=== PATIENT | male | born 1950 | race Caucasian/White ===

== ENCOUNTER → 2016-06-12 | Outpatient (CLI) | payer OTHER ==
[~2016-06-12] MED LIST: IOPAMIDOL (ISOVUE-300) 100 ML BTL IV ONE
== END ==
LOC: FIMAGING 10:01
PROVIDERS: ATTEND Internal Medicine Critical Care Medicine
DX: R59.1 Generalized enlarged lymph nodes (principal)
CPT/HCPCS: Q9967

== ENCOUNTER → 2016-07-04 | Outpatient (CLI) | payer OTHER | LOC: FIMAGING 16:31 | PROVIDERS: ATTEND Neurological Surgery | DX: Z09 Encounter for follow-up examination after completed treatment for conditions other than malignant neoplasm (principal); Z98.1 Arthrodesis status ==

== ENCOUNTER → 2016-10-03 | Outpatient (CLI) | payer OTHER, MEDICARE | LOC: BMCIMAGING 08:40 | PROVIDERS: ATTEND Family Medicine | DX: K76.89 Other specified diseases of liver (principal); K76.0 Fatty (change of) liver, not elsewhere classified; R16.0 Hepatomegaly, not elsewhere classified; N28.89 Other specified disorders of kidney and ureter; N20.0 Calculus of kidney ==

== ENCOUNTER → 2016-11-01 | Outpatient (CLI) | payer OTHER, MEDICARE ==
[~2016-11-01] MED LIST changes: -IOPAMIDOL (ISOVUE-300) 100 ML BTL IV ONE; +IOPAMIDOL (ISOVUE-300) 100 ML BTL ONE
== END ==
LOC: FIMAGING 10:16
PROVIDERS: ATTEND Family Medicine
DX: K76.0 Fatty (change of) liver, not elsewhere classified (principal); K76.89 Other specified diseases of liver
CPT/HCPCS: 74160; Q9967

== ENCOUNTER → 2016-12-31 | Outpatient (CLI) | payer OTHER, MEDICARE | LOC: FCPNEURO 23:19 | PROVIDERS: ATTEND Psychiatry & Neurology Sleep Medicine | DX: R09.02 Hypoxemia (principal); G47.61 Periodic limb movement disorder ==

== ENCOUNTER 2017-03-10 08:03 | Inpatient (IN) | payer OTHER, MEDICARE ==
--- NOTE | 2017-03-10 08:16 | CPEKG ---
Heart Rate: 113 RR Interval: 531 P-R Interval: 164 QRSD Interval: 92 QT Interval: 324 QTC Interval: 445 P Lena: 75 QRS Lena: 93 T Wave Lena: 41 EKG Severity - OTHERWISE NORMAL ECG - EKG Impression: SINUS TACHYCARDIA EKG Impression: RIGHT AXIS DEVIATION Electronically Signed By: Deandre Diego 10-Mar-2017 11:27:29
--- NOTE | 2017-03-10 08:38 | EDPHY ---
H & P Time Seen by Provider: 03/10/17 08:37 HPI/ROS: Chief complaint. Shortness of breath HPI. Patient is a 66-year-old male presents emergency department with phlegm and chest for 1 month. 2 weeks ago he was visiting his daughter in [place] and then noticed he was gasping for breath on the plane back. He has been using Mucinex and Symbicort with inadequate relief. He has now been on amoxicillin and prednisone for the past 5 days. He has had a low-grade fever. His dyspnea is much worse with exertion. He lives in [place] and has noted that his pulse oximeter is in the mid 60%. He has had cough and feels fluid buildup in his lungs. He has sharp mid chest discomfort with cough. No unusual leg pain or swelling. Chronic low back pain with continuous opioid dependency. ROS Constitutional. no fever/chills, no weakness Eyes. no problems with vision ENT. no sore throat, no nasal drainage Cardiovascular. Chest pain with cough Respiratory. Exertional dyspnea and cough Abdominal. no abdominal pain, no nausea/vomiting, no diarrhea . no problems urinating MS. no calf pain/swelling, no neck/back pain, no joint pain Skin. no rash Lymph. no swollen glands Neuro. no headache, no dizziness, no difficulty walking or with speech Past Medical/Surgical History: Past medical history is significant for chronic back closed head injury, seizure disorder, asthma Social History: , nonsmoker, no alcohol Smoking Status: Former smoker Physical Exam: General Appearance: Alert well-developed male moderate distress vital signs significant for blood pressure 102/48, heart rate 106, O2 saturation room air 84 % Eyes: Pupils equal and round no pallor or injection. ENT, mucous membranes are dry. Pharynx without injection Respiratory: No retractions but inspiratory expiratory rhonchi Cardiovascular: Regular rate and rhythm. Gastrointestinal: Abdomen is soft and nontender, no masses, bowel sounds normal. Neurological: Awake and alert, sensory and motor exams grossly normal. Skin: Warm and dry, no rashes. Musculoskeletal: Neck is supple nontender. Extremities symmetrical, full range of motion. Psychiatric: Patient is oriented X 3, there is no agitation. Constitutional: Initial Vital Signs Temperature (C) 37 C 03/10/17 08:05 Heart Rate 106 H 03/10/17 08:05 Respiratory Rate 20 03/10/17 08:05 Blood Pressure 102/48 L 03/10/17 08:05 O2 Sat (%) 84 L 03/10/17 08:05 O2 Delivery Mode Nasal Cannula O2 (L/minute) 2 Allergies/Adverse Reactions: erythromycin base Allergy (Intermediate, Verified 03/10/17 08:04) Hives Home Medications: Medication Instructions Recorded Cetirizine [ZyrTEC 10 mg (*)] 10 mg PO DAILY 09/13/15 Cyclobenzaprine [Flexeril 10 MG 20 mg PO HS 09/13/15 (*)] MILNACIPRAN HCL [Savella 50 mg] 100 mg PO HS 09/13/15 Zolpidem Tartrate [Ambien 5MG (*)] 10 mg PO HS PRN 09/13/15 Amphet Asp and D/Amphet [Adderall 30 mg PO DAILY 09/21/15 10 MG (*)] Fluticasone Nasal [Flonase Nasal 2 sprays EACHNARE DAILY 09/21/15 [place]] Aspirin EC [Aspirin EC 81 mg (*)] 81 mg PO DAILY #0 tab 02/13/16 Budesonide/Formoterol 160/4.5 2 puffs IH BID #1 mdi 02/13/16 [Symbicort 160-4.5 Mcg Inh (*)] Albuterol [Proventil Inhaler HFA 1 - 2 puffs IH DAILY PRN 03/10/17 (*)] Azithromycin 500 mg PO DAILY 03/10/17 Pregabalin [Lyrica] 600 - 900 mg PO HS 03/10/17 Topiramate [Topamax] 50 mg PO DAILY PRN 03/10/17 guaiFENesin [Mucinex 600 MG (*)] 600 mg PO Q4-6PRN PRN 03/10/17 morphINE IR [morphINE IR 15 mg (*)] 15 mg PO BID PRN 03/10/17 morphINE SR [MS Contin/Oramorph SR 30 mg PO TID 03/10/17 30 mg (*)] predniSONE 40 mg PO DAILY 03/10/17 Medical Decision Making - Diagnostics EKG Interpretation: EKG interpreted by me shows sinus tachycardia with normal interval. There is right axis deviation. QRS is otherwise normal. There is no significant ST elevation or depression. No arrhythmia. The rate is 113 Imaging Results: Imaging Impressions Chest X-Ray 03/10/17 08:25 Impression: Perihilar bronchitis with some suspected subtle groundglass pneumonitis in the inferior right upper lobe Chest x-ray reviewed by me shows what appears to be diffuse infiltrates especially in the right upper lobe CT chest shows no evidence of pulmonary embolus Procedures: IV normal saline. Monitor. Oxygen therapy. Rocephin IV ED Course/Re-evaluation: IV normal saline. Blood cultures, septic workup. On re-evaluation patient is stable. He and I discussed imaging and lab results. We discussed treatment plan the including recommendation for admission. He expresses understanding and agreement I consulted and discussed case with Dr. Sandoval, hospitalist, who agrees to the admission Differential Diagnosis: I considered pneumonia, pneumothorax, acute coronary syndrome - Data Points Laboratory Results: Laboratory Results 03/10/17 08:20 03/10/17 08:20 03/10/17 03/10/17 03/10/17 08:20 08:20 08:20 WBC RBC Hgb Hct MCV MCH MCHC RDW Plt Count MPV Neut % (Auto) Lymph % (Auto) [place] % (Auto) Eos % (Auto) Baso % (Auto) Nucleat RBC Rel Count Absolute Neuts (auto) Absolute Lymphs (auto) Absolute Monos (auto) Absolute Eos (auto) Absolute Basos (auto) Absolute Nucleated RBC Immature Gran % Seg Neutrophils % Band Neutrophils % Lymphocytes % Monocytes % Metamyelocytes % Myelocytes % Immature Gran # Absolute Seg Neuts Absolute Band Neuts Absolute Lymphocytes Absolute Monocytes Absolute Metamyelocyte Absolute Myelocytes Platelet Estimate Smear Review By PT INR APTT D-Dimer Cancelled VBG Lactic Acid Sodium Potassium Chloride Carbon Dioxide Anion Gap BUN Creatinine Estimated GFR Glucose Calcium Total Bilirubin Troponin I 0.022 ng/mL ng/mL (0.000-0.034) NT-Pro-B Natriuret Pep 402 pg/mL H pg/mL (0-125) 03/10/17 03/10/17 03/10/17 08:20 08:20 08:20 WBC 5.10 10^3/uL 10^3/uL (3.80-9.50) RBC 4.91 10^6/uL 10^6/uL (4.40-6.38) Hgb 15.4 g/dL g/dL (13.7-17.5) Hct 43.5 % % (40.0-51.0) MCV 88.6 fL fL (81.5-99.8) MCH 31.4 pg pg (27.9-34.1) MCHC 35.4 g/dL g/dL (32.4-36.7) RDW 12.2 % % (11.5-15.2) Plt Count 138 10^3/uL L 10^3/uL (150-400) MPV 10.2 fL fL (8.7-11.7) Neut % (Auto) 68.9 % % (39.3-74.2) Lymph % (Auto) 16.7 % % (15.0-45.0) Ocean % (Auto) 11.8 % % (4.5-13.0) Eos % (Auto) 0.0 % L % (0.6-7.6) Baso % (Auto) 0.4 % % (0.3-1.7) Nucleat RBC Rel Count 0.0 % % (0.0-0.2) Absolute Neuts (auto) 3.52 10^3/uL 10^3/uL (1.70-6.50) Absolute Lymphs (auto) 0.85 10^3/uL L 10^3/uL (1.00-3.00) Absolute Monos (auto) 0.60 10^3/uL 10^3/uL (0.30-0.80) Absolute Eos (auto) 0.00 10^3/uL L 10^3/uL (0.03-0.40) Absolute Basos (auto) 0.02 10^3/uL 10^3/uL (0.02-0.10) Absolute Nucleated RBC 0.00 10^3/uL 10^3/uL (0-0.01) Immature Gran % 2.2 % H % (0.0-1.1) Seg Neutrophils % 30 % % Band Neutrophils % 28 % % Lymphocytes % 24 % % Monocytes % 10 % % Metamyelocytes % 5 % % Myelocytes % 3 % % Immature Gran # 0.11 10^3/uL H 10^3/uL (0.00-0.10) Absolute Seg Neuts 1.53 10^/uL L 10^/uL (1.70-6.50) Absolute Band Neuts 1.43 10^3/uL H 10^3/uL (0.00-0.70) Absolute Lymphocytes 1.22 10^3/uL 10^3/uL (1.00-3.00) Absolute Monocytes 0.51 10^3/uL 10^3/uL (0.30-0.80) Absolute Metamyelocyte 0.26 10^3/mL H 10^3/mL (0.00-0.00) Absolute Myelocytes 0.15 10^3/mL H 10^3/mL (0.00-0.00) Platelet Estimate ADEQUATE (ADEQ) Smear Review By Pending PT 13.3 SEC SEC (12.0-15.0) INR 0.99 (0.83-1.16) APTT 28.0 SEC SEC (23.0-38.0) D-Dimer 1.39 ug/mLFEU H ug/mLFEU (0.00-0.50) VBG Lactic Acid 1.5 mmol/L mmol/L (0.7-2.1) Sodium Potassium Chloride Carbon Dioxide Anion Gap BUN Creatinine Estimated GFR Glucose Calcium Total Bilirubin Troponin I NT-Pro-B Natriuret Pep 03/10/17 08:20 WBC RBC Hgb Hct MCV MCH MCHC RDW Plt Count MPV Neut % (Auto) Lymph % (Auto) Ocean % (Auto) Eos % (Auto) Baso % (Auto) Nucleat RBC Rel Count Absolute Neuts (auto) Absolute Lymphs (auto) Absolute Monos (auto) Absolute Eos (auto) Absolute Basos (auto) Absolute Nucleated RBC Immature Gran % Seg Neutrophils % Band Neutrophils % Lymphocytes % Monocytes % Metamyelocytes % Myelocytes % Immature Gran # Absolute Seg Neuts Absolute Band Neuts Absolute Lymphocytes Absolute Monocytes Absolute Metamyelocyte Absolute Myelocytes Platelet Estimate Smear Review By PT INR APTT D-Dimer VBG Lactic Acid Sodium 138 mEq/L mEq/L (134-144) Potassium 4.0 mEq/L mEq/L (3.5-5.2) Chloride 101 mEq/L mEq/L (97-110) Carbon Dioxide 24 mEq/l mEq/l (22-31) Anion Gap 13 mEq/L mEq/L (8-16) BUN 21 mg/dL mg/dL (7-23) Creatinine 0.9 mg/dL mg/dL (0.7-1.3) Estimated GFR > 60 Glucose 114 mg/dL H mg/dL (70-100) Calcium 8.3 mg/dL L mg/dL (8.5-10.4) Total Bilirubin 0.8 mg/dL mg/dL (0.1-1.4) Troponin I NT-Pro-B Natriuret Pep Medications Given: Budesonide/Formoterol Fumarate (Symbicort 160-4.5 Mcg Inhaler) 2 puffs IH BID [facility] Stop: 09/06/17 11:59 Last Admin: 03/10/17 12:00 Dose: 2 puffs Cetirizine HCl (Zyrtec) 10 mg PO DAILY [facility] Stop: 09/06/17 08:59 Last Admin: 03/10/17 12:45 Dose: Not Given Fluticasone Propionate (Flonase Nasal [place]) 2 sprays EACHNARE DAILY [facility] Stop: 09/06/17 11:59 Last Admin: 03/10/17 12:46 Dose: 2 spr Guaifenesin (Mucinex) 600 mg PO BID [facility] Stop: 09/06/17 12:14 Last Admin: 03/10/17 12:45 Dose: 600 mg Oseltamivir Phosphate (Tamiflu) 75 mg PO BIDMEAL [facility] Stop: 03/14/17 18:01 Last Admin: 03/10/17 12:45 Dose: 75 mg Discontinued Medications Albuterol/Ipratropium (Duoneb) 3 ml IH EDNOW ONE Stop: 03/10/17 09:04 Last Admin: 03/10/17 09:12 Dose: 3 ml Sodium Chloride (Ns) 1,000 mls @ 0 mls/hr IV ONCE ONE; Wide Open PRN Reason: Protocol Stop: 03/10/17 09:04 Last Admin: 03/10/17 09:13 Dose: 1,000 mls Sodium Chloride (Ns) 1,000 mls @ 0 mls/hr IV ONCE ONE; Wide Open PRN Reason: Protocol Stop: 03/10/17 09:04 Last Admin: 03/10/17 12:32 Dose: Not Given Ceftriaxone Sodium/Dextrose (Rocephin 1 Gm (Premix)) 50 mls @ 100 mls/hr IV EDNOW ONE PRN Reason: Protocol Stop: 03/10/17 09:33 Last Admin: 03/10/17 09:12 Dose: 50 mls Departure - Departure Disposition: [facility] Inpatient Acute Clinical Impression: Hypoxia Pneumonia Qualifiers: Pneumonia type: due to unspecified organism Laterality: bilateral Lung location : upper lobe of lung Qualified Code(s): J18.9 - Pneumonia, unspecified organism Condition: Fair
[2017-03-10 08:50] LABS: % IMMATURE GRANULYOCYTES 2.2 % (0.0-1.1); ABSOLUTE IMMATURE GRANULOCYTES 0.11 10^3/uL (0.00-0.10); ADD DIFF? NO; ADD MORPH? NO; ADD SCAN? YES; FRAGMENT RBC FLAG 0 (0-99); HEMATOCRIT 43.5 % (40.0-51.0); HEMOGLOBIN 15.4 g/dL (13.7-17.5); LIPEMIA HEMOLYSIS FLAG 90 (0-99); MEAN CELL HEMOGLOBIN 31.4 pg (27.9-34.1); MEAN CELL HEMOGLOBIN CONCENTR. 35.4 g/dL (32.4-36.7); MEAN CELL VOLUME 88.6 fL (81.5-99.8); MEAN PLATELET VOLUME 10.2 fL (8.7-11.7); PLATELET CLUMPS FLAG 10 (0-99); PLATELET COUNT 138 10^3/uL (150-400); RED BLOOD CELL COUNT 4.91 10^6/uL (4.40-6.38); RED CELL DISTRIBUTION WIDTH 12.2 % (11.5-15.2)
[2017-03-10 08:51] LABS: ATYPICAL LYMPHOCYTE FLAG 150 (0-99); LEFT SHIFT FLG 130 (0-99)
[2017-03-10 08:57] LABS: ANION GAP 13 mEq/L (8-16); BILIRUBIN,TOTAL 0.8 mg/dL (0.1-1.4); CALCIUM 8.3 mg/dL (8.5-10.4); CARBON DIOXIDE 24 mEq/l (22-31); CHLORIDE 101 mEq/L (97-110); CREATININE 0.9 mg/dL (0.7-1.3); GLOMERULAR FILTRATION RATE > 60; GLUCOSE 114 mg/dL (70-100); SODIUM 138 mEq/L (134-144)
[2017-03-10 09:01] LABS: INR 0.99 (0.83-1.16); PROTIME(PATIENT) 13.3 SEC (12.0-15.0)
[2017-03-10] MEDS ORDERED: NS 1,000 ML IV ONE ×2 (09:03)
[2017-03-10] MEDS ORDERED: IPRATROPIUM/ALBUTEROL 3 ML DEYVIAL IH ONE (09:03)
[2017-03-10 09:24] LABS: SCAN POSITIVE
[2017-03-10 09:34] LABS: PLATELET ESTIMATE ADEQUATE (ADEQ)
[2017-03-10] MEDS ORDERED: IOPAMIDOL (ISOVUE 370) 100 ML BTL IV ONE (10:41)
--- NOTE | 2017-03-10 10:58 | ASMTCMCOM ---
CM Note CM Note Notes: Patient admitted for dyspnea, pneumonia. Patient lives in [place] with his , Kaylie Garces. Patient was admitted in January 2016 for Reactive Airway Disease and discharged home with family and instructions to follow up with temper mill roller and transportation modeler. Patient's PCP is Dr. Gurjit Jacobo. Exact DC needs unknown. CM to follow. Date Signed: 03/10/2017 10:57 AM Electronically Signed By:Kristy Mirza RN
[2017-03-10] MEDS ORDERED: IPRATROPIUM/ALBUTEROL 3 ML DEYVIAL IH PRN (11:45)
[2017-03-10] MEDS ORDERED: ONDANSETRON DISINTEGRATING 4 MG TAB PO PRN (11:45)
[2017-03-10] MEDS ORDERED: ACETAMINOPHEN 325 MG TAB PO PRN (11:45)
[2017-03-10] MEDS ORDERED: ONDANSETRON 4 MG/2 ML VIAL IVP PRN (11:45)
[2017-03-10] MEDS ORDERED: ZOLPIDEM TARTRATE 5 MG TAB PO PRN (11:53)
[2017-03-10] MEDS: BUDESONIDE/FORMOTEROL 160/4.5 60 PUFFS/MDI IH SCH ×2 (12:00→20:14)
--- NOTE | 2017-03-10 12:02 | PDGENHP ---
History and Physical - Chief Complaint cough, SOB - History of Present Illness 66 yo male with h/o possible COPD and chronic pain presents to ED with cough and SOB. He recently traveled from [place] and developed fevers, aches and was gasping for breath. He was so short of breath when he returned to [place], he could barely walk into the house. He went to his PCP the following day and was started on Prednisone and Azithromcyin. He felt better after starting the Prednisone, but his condition got worse with increased SOB, productive cough and feels like he is drowning in fluid. He wears home O2 at 2 LPM. He is followed by Dr. Andrea Grimes. He thinks he has asthma, but isn't sure of his diagnosis. He uses Symbicort, Albuterol, anti- histamines. History Information - Allergies/Home Medication List Allergies/Adverse Reactions: erythromycin base Allergy (Intermediate, Verified 03/10/17 08:04) Hives Home Medications: Cetirizine [ZyrTEC 10 mg (*)] 10 mg PO DAILY 09/13/15 [Last Taken 03/09/17] Cyclobenzaprine [Flexeril 10 MG (*)] 20 mg PO HS 09/13/15 [Last Taken 03/09/17] MILNACIPRAN HCL [Savella 50 mg] 100 mg PO HS 09/13/15 [Last Taken 03/09/17] Zolpidem Tartrate [Ambien 5MG (*)] 10 mg PO HS PRN 09/13/15 [Last Taken 1 Week Ago ~03/03/17] Amphet Asp and D/Amphet [Adderall 10 MG (*)] 30 mg PO DAILY 09/21/15 [Last Taken 03/10/17] Fluticasone Nasal [Flonase Nasal [place]] 2 sprays EACHNARE DAILY 09/21/15 [Last Taken 03/09/17] Albuterol [Proventil Inhaler HFA (*)] 1 - 2 puffs IH DAILY PRN 03/10/17 [Last Taken Unknown] Azithromycin 500 mg PO DAILY 03/10/17 [Last Taken 03/09/17] Pregabalin [Lyrica] 600 - 900 mg PO HS 03/10/17 [Last Taken 03/09/17 900mg] Topiramate [Topamax] 50 mg PO DAILY PRN 03/10/17 [Last Taken Unknown] guaiFENesin [Mucinex 600 MG (*)] 600 mg PO Q4-6PRN PRN 03/10/17 [Last Taken Unknown] morphINE IR [morphINE IR 15 mg (*)] 15 mg PO BID PRN 03/10/17 [Last Taken 07:00] morphINE SR [MS Contin/Oramorph SR 30 mg (*)] 30 mg PO TID 03/10/17 [Last Taken 03/10/17 07:00] predniSONE 40 mg PO DAILY 03/10/17 [Last Taken 03/10/17] I have personally reviewed and updated: family history, medical history, social history, surgical history - Past Medical History Additional medical history: Chronic lower back pain with continuous opiate dependency. BPH with annual testing of PSA level. Reactive airway disease. fibromyalgia. Allergic rhinitis - Surgical History Additional surgical history: lumbar back surgery at [facility] Dr. Rufus Jay - Family History Additional family history: father and brother with prostate cancer. no family history of venous thromboembolism. 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 [place] and enjoys occasional fishing trip Review of Systems Review of Systems: ROS: 10pt was reviewed & negative except for what was stated in HPI & below Physical Exam Physical Exam: Temp Pulse Resp BP Pulse Ox 37.3 C 95 18 122/69 H 92 03/10/17 11:03 03/10/17 11:03 03/10/17 11:03 03/10/17 11:03 03/10/17 11:03 O2 (L/minute) 5 Constitutional: no apparent distress Eyes: PERRL Ears, Nose, Mouth, Throat: moist mucous membranes Cardiovascular: regular rate and rhythym Respiratory: no respiratory distress, reduced air movement, expiratory wheeze Skin: warm Musculoskeletal: full muscle strength Neurologic: AAOx3 Psychiatric: interacting appropriately Lab Data & Imaging Review 03/10/17 08:20 03/10/17 08:20 WBC 5.10 10^3/uL (3.80-9.50) 03/10/17 08:20 RBC 4.91 10^6/uL (4.40-6.38) 03/10/17 08:20 Hgb 15.4 g/dL (13.7-17.5) 03/10/17 08:20 Hct 43.5 % (40.0-51.0) 03/10/17 08:20 MCV 88.6 fL (81.5-99.8) 03/10/17 08:20 MCH 31.4 pg (27.9-34.1) 03/10/17 08:20 MCHC 35.4 g/dL (32.4-36.7) 03/10/17 08:20 RDW 12.2 % (11.5-15.2) 03/10/17 08:20 Plt Count 138 10^3/uL (150-400) L 03/10/17 08:20 MPV 10.2 fL (8.7-11.7) 03/10/17 08:20 Neut % (Auto) 68.9 % (39.3-74.2) 03/10/17 08:20 Lymph % (Auto) 16.7 % (15.0-45.0) 03/10/17 08:20 [place] % (Auto) 11.8 % (4.5-13.0) 03/10/17 08:20 Eos % (Auto) 0.0 % (0.6-7.6) L 03/10/17 08:20 Baso % (Auto) 0.4 % (0.3-1.7) 03/10/17 08:20 Nucleat RBC Rel Count 0.0 % (0.0-0.2) 03/10/17 08:20 Absolute Neuts (auto) 3.52 10^3/uL (1.70-6.50) 03/10/17 08:20 Absolute Lymphs (auto) 0.85 10^3/uL (1.00-3.00) L 03/10/17 08:20 Absolute Monos (auto) 0.60 10^3/uL (0.30-0.80) 03/10/17 08:20 Absolute Eos (auto) 0.00 10^3/uL (0.03-0.40) L 03/10/17 08:20 Absolute Basos (auto) 0.02 10^3/uL (0.02-0.10) 03/10/17 08:20 Absolute Nucleated RBC 0.00 10^3/uL (0-0.01) 03/10/17 08:20 Immature Gran % 2.2 % (0.0-1.1) H 03/10/17 08:20 Seg Neutrophils % 30 % 03/10/17 08:20 Band Neutrophils % 28 % 03/10/17 08:20 Lymphocytes % 24 % 03/10/17 08:20 Monocytes % 10 % 03/10/17 08:20 Metamyelocytes % 5 % 03/10/17 08:20 Myelocytes % 3 % 03/10/17 08:20 Immature Gran # 0.11 10^3/uL (0.00-0.10) H 03/10/17 08:20 Absolute Seg Neuts 1.53 10^/uL (1.70-6.50) L 03/10/17 08:20 Absolute Band Neuts 1.43 10^3/uL (0.00-0.70) H 03/10/17 08:20 Absolute Lymphocytes 1.22 10^3/uL (1.00-3.00) 03/10/17 08:20 Absolute Monocytes 0.51 10^3/uL (0.30-0.80) 03/10/17 08:20 Absolute Metamyelocyte 0.26 10^3/mL (0.00-0.00) H 03/10/17 08:20 Absolute Myelocytes 0.15 10^3/mL (0.00-0.00) H 03/10/17 08:20 Platelet Estimate ADEQUATE (ADEQ) 03/10/17 08:20 PT 13.3 SEC (12.0-15.0) 03/10/17 08:20 INR 0.99 (0.83-1.16) 03/10/17 08:20 APTT 28.0 SEC (23.0-38.0) 03/10/17 08:20 D-Dimer 1.39 ug/mLFEU (0.00-0.50) H 03/10/17 08:20 VBG Lactic Acid 1.5 mmol/L (0.7-2.1) 03/10/17 08:20 Sodium 138 mEq/L (134-144) 03/10/17 08:20 Potassium 4.0 mEq/L (3.5-5.2) 03/10/17 08:20 Chloride 101 mEq/L (97-110) 03/10/17 08:20 Carbon Dioxide 24 mEq/l (22-31) 03/10/17 08:20 Anion Gap 13 mEq/L (8-16) 03/10/17 08:20 BUN 21 mg/dL (7-23) 03/10/17 08:20 Creatinine 0.9 mg/dL (0.7-1.3) 03/10/17 08:20 Estimated GFR > 60 03/10/17 08:20 Glucose 114 mg/dL (70-100) H 03/10/17 08:20 Calcium 8.3 mg/dL (8.5-10.4) L 03/10/17 08:20 Total Bilirubin 0.8 mg/dL (0.1-1.4) 03/10/17 08:20 Troponin I 0.022 ng/mL (0.000-0.034) 03/10/17 08:20 NT-Pro-B Natriuret Pep 402 pg/mL (0-125) H 03/10/17 08:20 Visualized and Interpreted Chest x-ray results: Yes Chest X-Ray results: no infiltrate Visualized and Interpreted EKG results: Yes EKG Interpretation: Positive for: normal sinsus rhythm Assessment & Plan Assessment: Acute hypoxemic respiratory failure secondary to Influenza A +/-PNA: 5 LPM O2. PCT 0.66, possible secondary bacterial PNA. +H/O RAD -Tamiflu -Ceftriaxone (already completed >1.5 g Azithro) -Prednisone, nebs -wean O2 as able -supportive care, anti-tussives RAD - as above, prednisone, nebs, O2 Chronic pain - cont home opioid regimen Full code DVT PPLX - Lovenox Dispo - inpt, anticipate >48 hrs hospitalization for ongoing management hypoxemia, influenza and pna
[2017-03-10] MEDS ORDERED: GUAIFENESIN/DM 10 ML UDCUP PO PRN (12:07)
[2017-03-10] MEDS ORDERED: TOPIRAMATE 25 MG TAB PO PRN (12:15)
[2017-03-10] MEDS: CETIRIZINE 10 MG TAB PO SCH (12:45)
[2017-03-10] MEDS: guaiFENesin 600 MG TAB.ER PO SCH ×2 (12:45→20:01)
[2017-03-10] MEDS: OSELTAMIVIR PHOSPHATE 75 MG CAP PO SCH ×2 (12:45→17:15)
[2017-03-10] MEDS: FLUTICASONE NASAL 120 SPRAYS/16 GM MDI EACHNARE SCH (12:46)
[2017-03-10] MEDS: morphINE SR 30 MG TAB PO SCH ×2 (17:15→21:54)
--- NOTE | 2017-03-10 17:32 | PDMN ---
Medical Necessity Medical necessity: est los>2mn for acute hypoxemic resp failure r/t influenza A , and PNA ; admit for IV abx, nebs, steroids and supplemental O2; comorbid RAD , fibromyalgia, chronic pain w/ opioid dependence; per order and H&P 03/10/17
[2017-03-10] MEDS: CYCLOBENZAPRINE 10 MG TAB PO SCH (20:01)
[2017-03-10] MEDS: Milnacipran Hcl [Savella] 100 MG PO SCH (20:02)
[2017-03-10] MEDS ORDERED: PREGABALIN 150 MG CAP PO SCH (21:00)
[2017-03-11] MEDS: BUDESONIDE/FORMOTEROL 160/4.5 60 PUFFS/MDI IH SCH ×2 (08:16→21:47)
[2017-03-11] MEDS: FLUTICASONE NASAL 120 SPRAYS/16 GM MDI EACHNARE SCH (08:16)
[2017-03-11] MEDS: guaiFENesin 600 MG TAB.ER PO SCH ×2 (08:17→21:36)
[2017-03-11] MEDS: OSELTAMIVIR PHOSPHATE 75 MG CAP PO SCH ×2 (08:17→16:07)
[2017-03-11] MEDS: ASPIRIN EC 81 MG TAB PO SCH (08:17)
[2017-03-11] MEDS: morphINE SR 30 MG TAB PO SCH ×3 (08:17→21:36)
[2017-03-11] MEDS: CETIRIZINE 10 MG TAB PO SCH (08:17)
[2017-03-11] MEDS: ENOXAPARIN 40 MG/0.4 ML SYR SC SCH (08:17)
[2017-03-11] MEDS ORDERED: predniSONE 20 MG TAB PO SCH (09:00)
[2017-03-11] MEDS ORDERED: AZITHROMYCIN 500 MG PO SCH (09:00)
[2017-03-11] MEDS ORDERED: predniSONE 20 MG TAB PO ONE (10:50)
[2017-03-11] MEDS ORDERED: ALBUTEROL 3 ML DEYVIAL IH PRN (10:51)
--- NOTE | 2017-03-11 10:53 | HOSPPROG ---
Hospitalist Progress Note Assessment/Plan: Acute on chronic hypoxemic respiratory failure secondary to Influenza +/- PNA - Uses 2 LPM at home, currently on 6 LPM. -cont tamiflu -increase prednisone to 60 mg daily -schedule duonebs q4h with prn albuterol nebs q2h -wean O2 as able -cont atbx Chronic hypoxemia with h/o RAD and central sleep apnea - needs outpt f/u with Pulmonology. Chronic pain - cont home opioid regimen Full code DVT PPLX - Lovenox Dispo - cont inpt Subjective: Pt feels a little better. Still coughing quite a bit. No fevers. Feels SOB, wheezy. No CP. Objective: Vital Signs Temp Pulse Resp BP Pulse Ox 36.8 C 83 18 115/76 92 03/11/17 08:00 03/11/17 08:00 03/11/17 08:00 03/11/17 08:00 03/11/17 08:00 Microbiology 03/10/17 09:55 Respiratory Panel (PCR) - Final Nasal, Sinus - Swab Influenza Virus Type A H3 03/10/17 03/11/17 03/12/17 05:59 05:59 05:59 Intake Total 2100 Output Total 300 Balance 1800 PT 13.3 SEC (12.0-15.0) 03/10/17 08:20 INR 0.99 (0.83-1.16) 03/10/17 08:20 - Physical Exam Constitutional: no apparent distress Eyes: PERRL Ears, Nose, Mouth, Throat: moist mucous membranes Cardiovascular: regular rate and rhythym, no murmur, rub, or gallop Respiratory: no respiratory distress, reduced air movement, expiratory wheeze Gastrointestinal: normoactive bowel sounds, soft, non-tender abdomen Skin: warm Musculoskeletal: full muscle strength Neurologic: AAOx3 Psychiatric: interacting appropriately ICD10 Worksheet Patient Problems: Problems Problem Status Onset Hypoxia Acute Pneumonia Acute Acute bronchitis Acute Arthrodesis status Acute Lumbar radiculitis Acute Lumbar stenosis Acute
[2017-03-11] MEDS: IPRATROPIUM/ALBUTEROL 3 ML DEYVIAL IH SCH ×3 (12:12→21:47)
[2017-03-11] MEDS: PREGABALIN 300 MG PO SCH (21:34)
[2017-03-11] MEDS: Milnacipran Hcl [Savella] 100 MG PO SCH (21:35)
[2017-03-11] MEDS: CYCLOBENZAPRINE 10 MG TAB PO SCH (21:36)
[2017-03-12] MEDS: IPRATROPIUM/ALBUTEROL 3 ML DEYVIAL IH SCH ×4 (05:25→20:56)
[2017-03-12] MEDS: ENOXAPARIN 40 MG/0.4 ML SYR SC SCH (09:07)
[2017-03-12] MEDS: morphINE SR 30 MG TAB PO SCH ×3 (09:07→22:05)
[2017-03-12] MEDS: OSELTAMIVIR PHOSPHATE 75 MG CAP PO SCH ×2 (09:08→17:39)
[2017-03-12] MEDS: guaiFENesin 600 MG TAB.ER PO SCH ×2 (09:09→20:28)
[2017-03-12] MEDS: CETIRIZINE 10 MG TAB PO SCH (09:09)
[2017-03-12] MEDS: predniSONE 20 MG TAB PO SCH (09:09)
[2017-03-12] MEDS: ASPIRIN EC 81 MG TAB PO SCH (10:11)
[2017-03-12] MEDS: FLUTICASONE NASAL 120 SPRAYS/16 GM MDI EACHNARE SCH (10:13)
[2017-03-12] MEDS: BUDESONIDE/FORMOTEROL 160/4.5 60 PUFFS/MDI IH SCH ×2 (11:28→20:56)
--- NOTE | 2017-03-12 16:38 | HOSPPROG ---
Hospitalist Progress Note Assessment/Plan: New patient encounter Acute on chronic hypoxemic respiratory failure secondary to Influenza +/- PNA - Uses 2 LPM at home, currently on 6 LPM. -cont tamiflu -cont prednisone to 60 mg daily -schedule duonebs q4h with prn albuterol nebs q2h -wean O2 as able -cont atbx Chronic hypoxemia with h/o RAD and central sleep apnea - needs outpt f/u with Pulmonology. Chronic pain - cont home opioid regimen Full code DVT PPLX - Lovenox Dispo - cont inpt Plan: per above Recheck BNP and CXR tomorrow Doing better overall Subjective: feels better. Still on 5 L O2, + Cough. NO CP, no leg swelling Objective: Vital Signs Temp Pulse Resp BP Pulse Ox 36.8 C 89 18 112/67 95 03/12/17 11:51 03/12/17 16:24 03/12/17 16:24 03/12/17 11:51 03/12/17 16:24 Laboratory Results 03/12/17 04:40 03/11/17 03/12/17 03/13/17 05:59 05:59 05:59 Intake Total 2100 1450 Output Total 300 Balance 1800 1450 PT 13.3 SEC (12.0-15.0) 03/10/17 08:20 INR 0.99 (0.83-1.16) 03/10/17 08:20 - Physical Exam Constitutional: no apparent distress Eyes: PERRL, EOMI Ears, Nose, Mouth, Throat: moist mucous membranes, hearing normal Cardiovascular: regular rate and rhythym, No edema Respiratory: reduced air movement Gastrointestinal: normoactive bowel sounds, soft, non-tender abdomen Genitourinary: no bladder fullness Skin: warm Neurologic: AAOx3 Psychiatric: interacting appropriately, not anxious, not encephalopathic Lymph, Heme, Immunologic: No petechiae ICD10 Worksheet Patient Problems: Problems Problem Status Onset Hypoxia Acute Pneumonia Acute chronic disease mgmt/transitional care Acute Acute bronchitis Acute Arthrodesis status Acute Lumbar radiculitis Acute Lumbar stenosis Acute
[2017-03-12] MEDS: CYCLOBENZAPRINE 10 MG TAB PO SCH (20:28)
[2017-03-12] MEDS: Milnacipran Hcl [Savella] 100 MG PO SCH (20:29)
[2017-03-12] MEDS: PREGABALIN 300 MG PO SCH (22:15)
[2017-03-13] MEDS: IPRATROPIUM/ALBUTEROL 3 ML DEYVIAL IH SCH ×4 (06:04→20:37)
[2017-03-13] MEDS: ENOXAPARIN 40 MG/0.4 ML SYR SC SCH (08:32)
[2017-03-13] MEDS: OSELTAMIVIR PHOSPHATE 75 MG CAP PO SCH ×2 (08:32→19:21)
[2017-03-13] MEDS: morphINE SR 30 MG TAB PO SCH ×3 (08:33→21:20)
[2017-03-13] MEDS: ASPIRIN EC 81 MG TAB PO SCH (08:33)
[2017-03-13] MEDS: predniSONE 20 MG TAB PO SCH (08:33)
[2017-03-13] MEDS: CETIRIZINE 10 MG TAB PO SCH (08:33)
[2017-03-13] MEDS: guaiFENesin 600 MG TAB.ER PO SCH ×2 (08:33→21:20)
[2017-03-13] MEDS: FLUTICASONE NASAL 120 SPRAYS/16 GM MDI EACHNARE SCH (12:04)
[2017-03-13] MEDS: BUDESONIDE/FORMOTEROL 160/4.5 60 PUFFS/MDI IH SCH ×2 (12:06→20:37)
--- NOTE | 2017-03-13 15:15 | HOSPPROG ---
Hospitalist Progress Note Assessment/Plan: 66 yo male admitted for acute on chronic resp failure found to have influenza and started on tamiflu and prednisone. Was also started on Rocephin and Azithromycin for possible right sided infiltrate and narrowed to Rocephin alone. Improving slowly down to 5 LO2, baseline is 2L intermittently Acute on chronic hypoxemic respiratory failure secondary to Influenza +/- PNA - Uses 2 LPM at home, currently on 6 LPM. -cont tamiflu -cont prednisone to 60 mg daily -schedule duonebs q4h with prn albuterol nebs q2h -wean O2 as able -cont atbx Chronic hypoxemia with h/o RAD and central sleep apnea - needs outpt f/u with Pulmonology. Chronic pain - cont home opioid regimen Full code DVT PPLX - Lovenox Dispo - cont inpt Plan: Lasix x 1 cont all other has been slowly improving, will repeat labs tomorrow including PC. Dispo: possibly d/c tomorrow vs the next day. Subjective: Improving but still SOB. Hypoxic. No CP. No N/V. Objective: Vital Signs Temp Pulse Resp BP Pulse Ox 36.8 C 84 16 127/79 H 94 03/13/17 11:26 03/13/17 12:25 03/13/17 12:25 03/13/17 11:26 03/13/17 12:25 Laboratory Results 03/12/17 04:40 03/12/17 03/13/17 03/14/17 05:59 05:59 05:59 Intake Total 1450 2300 Balance 1450 2300 PT 13.3 SEC (12.0-15.0) 03/10/17 08:20 INR 0.99 (0.83-1.16) 03/10/17 08:20 - Physical Exam Constitutional: no apparent distress, appears nourished Eyes: PERRL, EOMI Ears, Nose, Mouth, Throat: moist mucous membranes, hearing normal Cardiovascular: regular rate and rhythym, No edema Respiratory: reduced air movement, expiratory wheeze Gastrointestinal: normoactive bowel sounds Skin: warm Musculoskeletal: generalized weakness Neurologic: AAOx3 Psychiatric: interacting appropriately, not anxious, not encephalopathic Lymph, Heme, Immunologic: No petechiae ICD10 Worksheet Patient Problems: Problems Problem Status Onset Hypoxia Acute Pneumonia Acute chronic disease mgmt/transitional care Acute Acute bronchitis Acute Arthrodesis status Acute Lumbar radiculitis Acute Lumbar stenosis Acute
[2017-03-13] MEDS ORDERED: FUROSEMIDE 20 MG TAB PO ONE (15:16)
[2017-03-13] MEDS: Milnacipran Hcl [Savella] 100 MG PO SCH (21:21)
[2017-03-13] MEDS: PREGABALIN 300 MG PO SCH (21:21)
[2017-03-13] MEDS: CYCLOBENZAPRINE 10 MG TAB PO SCH (21:21)
[2017-03-14 04:08] LABS: ABSOLUTE IMMATURE GRANULOCYTES 0.16 10^3/uL (0.00-0.10); ADD DIFF? NO; ADD MORPH? NO; ADD SCAN? NO; ATYPICAL LYMPHOCYTE FLAG 80 (0-99); FRAGMENT RBC FLAG 0 (0-99); HEMATOCRIT 40.3 % (40.0-51.0); HEMOGLOBIN 14.1 g/dL (13.7-17.5); LEFT SHIFT FLG 10 (0-99); LIPEMIA HEMOLYSIS FLAG 90 (0-99); MEAN CELL HEMOGLOBIN 31.3 pg (27.9-34.1); MEAN CELL VOLUME 89.6 fL (81.5-99.8); MEAN PLATELET VOLUME 9.7 fL (8.7-11.7); PLATELET CLUMPS FLAG 0 (0-99); PLATELET COUNT 199 10^3/uL (150-400)
[2017-03-14] MEDS: IPRATROPIUM/ALBUTEROL 3 ML DEYVIAL IH SCH ×2 (05:25→11:45)
[2017-03-14] MEDS: BUDESONIDE/FORMOTEROL 160/4.5 60 PUFFS/MDI IH SCH (08:05)
[2017-03-14] MEDS: predniSONE 20 MG TAB PO SCH (08:16)
[2017-03-14] MEDS: OSELTAMIVIR PHOSPHATE 75 MG CAP PO SCH ×2 (08:16→14:32)
[2017-03-14] MEDS: morphINE SR 30 MG TAB PO SCH (08:16)
[2017-03-14] MEDS: guaiFENesin 600 MG TAB.ER PO SCH (08:16)
[2017-03-14] MEDS: ASPIRIN EC 81 MG TAB PO SCH (08:16)
[2017-03-14] MEDS: ENOXAPARIN 40 MG/0.4 ML SYR SC SCH (08:16)
[2017-03-14] MEDS: CETIRIZINE 10 MG TAB PO SCH (08:17)
[2017-03-14 11:08] VITALS: BP 103/61; PULSE 91; RESP 14; TEMP 98.3; O2SAT 93
[2017-03-14] MEDS: FLUTICASONE NASAL 120 SPRAYS/16 GM MDI EACHNARE SCH (12:04)
--- NOTE | 2017-03-14 13:38 | PDDCSUM ---
Discharge Summary Discharge Summary: HPI/Hospital course 66 yo male admitted for acute on chronic resp failure found to have influenza and started on tamiflu and prednisone. Was also started on Rocephin and Azithromycin for possible right sided infiltrate and narrowed to Rocephin alone. He was given Lasix with some improvement. He is now on 3L O2, feels better. His baseline is 2L O2. He will be discharged and will f/u with PCP. Please see details below. Acute on chronic hypoxemic respiratory failure secondary to Influenza +/- PNA - Uses 2 LPM at home, -cont tamiflu -Pred taper -albuterol PRN -Omnicef, 7 DAY TOTAL ABX COURSE Chronic hypoxemia with h/o RAD and central sleep apnea - needs outpt f/u with Pulmonology. Chronic pain - cont home opioid regimen Exam: VSS ON 3lO2 NAD AAOX3 RRR COARSE BREATH SOUND S/NT/ND NO LE EDEMA MEDS: SEE MED REC TOTAL TIME SPENT ON D/C IS 40 MINS
--- NOTE | 2017-03-14 17:55 | ASDISCHSUM ---
Discharge Information Plan Status:Home with No Needs Medically Cleared to Leave: Discharge Date:03/14/2017 02:55 PM CM D/C Disposition:Home, Routine, Self-Care ADT D/C Disposition:Home, Routine, Self-Care Projected Discharge Date:03/14/2017 02:55 PM Transportation at D/C: Discharge Delay Reason: Follow-Up Date:03/14/2017 02:55 PM Discharge Slot: Final Diagnosis: Placement Information Patient Contact Information Contact Name:DEONTE Relationship: Address:[address] City:[place] Alternate Phone: [facility]/Zip Code:[place] [address] Email: Financial Information Financial Class: Primary Plan Desc:MEDICARE INPATIENT Primary Plan Number:[id number] Secondary Plan Desc:[employer]/MDR SUPPLEMENT Secondary Plan Number:[id number] Assessment Information [facility] CM Progress Note CM Note CM Note Notes: Patient admitted for dyspnea, pneumonia. Patient lives in [place] with his , Kaylie Garces. 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 Patient's PCP is Dr. Gurjit Jacobo. Exact DC needs unknown. CM to follow. Date Signed: 03/10/2017 10:57 AM Electronically Signed By:Kristy Mirza RN LACE LACE Acuity / Level of Care Answers: Was the patient admitted to hospital via the emergency department? Yes: Comorbidities - select Answers: Chronic pulmonary disease all that apply Emergency dept visits in Answers: 1 last 6 months Score: 6 Date Signed: 03/10/2017 10:58 AM Electronically Signed By:Kristy Mirza RN Intervention Information
== END 2017-03-14 14:55 | disposition home or self-care (01) | DRG 193 ==
LOC: F2W 11:02
PROVIDERS: ADMIT Hospitalist; ATTEND Hospitalist
DX: J10.08 Influenza due to other identified influenza virus with other specified pneumonia (principal); J96.21 Acute and chronic respiratory failure with hypoxia; F11.20 Opioid dependence, uncomplicated; G47.31 Primary central sleep apnea; G89.29 Other chronic pain; N40.0 Benign prostatic hyperplasia without lower urinary tract symptoms; Z80.42 Family history of malignant neoplasm of prostate; J45.909 Unspecified asthma, uncomplicated
CPT/HCPCS: 96365; J0696; J1650; Q9967

== ENCOUNTER → 2017-07-18 | Outpatient (CLI) | payer OTHER, MEDICARE | LOC: FIMAGING 13:55 | PROVIDERS: ATTEND Physician Assistant | DX: Z98.1 Arthrodesis status (principal) ==

== ENCOUNTER → 2017-07-25 | Outpatient (CLI) | payer OTHER, MEDICARE | LOC: FIMAGING 15:58 | PROVIDERS: ATTEND Neurological Surgery | DX: M51.36 Other intervertebral disc degeneration, lumbar region (principal); M48.061 Spinal stenosis, lumbar region without neurogenic claudication; M12.88 Other specific arthropathies, not elsewhere classified, other specified site; M99.73 Connective tissue and disc stenosis of intervertebral foramina of lumbar region; Z98.1 Arthrodesis status ==

== ENCOUNTER → 2018-01-06 | Outpatient (CLI) | payer OTHER, MEDICARE | LOC: FIMAGING 16:44 → EDSTATUS 16:47 | PROVIDERS: ATTEND Physician Assistant | DX: Z98.1 Arthrodesis status (principal) ==

== ENCOUNTER → 2018-06-16 | Outpatient (CLI) | payer OTHER, MEDICARE | LOC: FIMAGING 14:58 | PROVIDERS: ATTEND Physician Assistant | DX: Z98.1 Arthrodesis status (principal) ==